=== PATIENT | male | born 1965 | race Caucasian/White ===

== ENCOUNTER 2021-10-09 10:46 | Emergency (ER) | payer MEDICAID ==
[~2021-10-09] VITALS: Ht 177.8 cm; Wt 100.0 kg
[2021-10-09 12:40] VITALS: BP 150/96
== END 2021-10-09 13:20 | disposition home or self-care (01) ==
LOC: ER 10:46
DX: S40.212A Abrasion of left shoulder, initial encounter (principal); M54.2 Cervicalgia; I10 Essential (primary) hypertension; V43.52XA Car driver injured in collision with other type car in traffic accident, initial encounter; Y93.89 Activity, other specified; Y92.488 Other paved roadways as the place of occurrence of the external cause
CPT/HCPCS: 99283

== ENCOUNTER 2022-10-12 13:05 | Emergency (ER) | payer MEDICAID ==
[~2022-10-12] VITALS: Ht 172.7 cm; Wt 120.0 kg
[2022-10-12 13:10] VITALS: TEMP 98.8; O2SAT 97
[2022-10-12 13:55] LABS: BASOPHILS % 0.5 % (0.0-2.0); EOSINOPHILS % 1.2 % (0.0-5.0); HEMATOCRIT. 40.8 % (42.0-52.0); HEMOGLOBIN. 13.7 g/dL (14.0-18.0); LYMPHOCYTES % 28.1 % (20.0-50.0); MEAN CORPUSCULAR HEMOGLOBIN 28.3 pg (28.0-32.0); MEAN CORPUSCULAR VOLUME 84.5 fL (80.0-94.0); MEAN PLATELET VOLUME 9.8 fl (7.4-10.4); MONOCYTES % 9.9 % (2.0-8.0); NEUTROPHILS % 60.3 % (40.0-76.0); PLATELET 225 x1000/uL (130-400); RED BLOOD CELL COUNT 4.83 mill/uL (4.7-6.1)
[2022-10-12 14:09] LABS: CHLORIDE 108 mEq/L (98-107)
[2022-10-12 14:23] LABS: ETHANOL BLOOD < 10 mg/dL (-10)
[2022-10-12 14:53] VITALS: BP 138/92; PULSE 99; RESP 18
== END 2022-10-12 14:54 | disposition home or self-care (01) ==
LOC: ER 13:05
DX: R00.2 Palpitations (principal); I10 Essential (primary) hypertension; R94.31 Abnormal electrocardiogram [ECG] [EKG]; Z98.890 Other specified postprocedural states
CPT/HCPCS: 36415; 71045; 80053; 80320; 83735; 84100; 84443; 84484; 85025; 93005; 99285; G0480

== ENCOUNTER 2023-04-21 13:52 | Emergency (ER) | payer MEDICAID ==
[~2023-04-21] VITALS: Ht 172.7 cm; Wt 103.0 kg
[2023-04-21 14:43] VITALS: O2SAT 99
[2023-04-21 15:28] LABS: BASOPHILS % 0.4 % (0.0-2.0); EOSINOPHILS % 0.4 % (0.0-5.0); HEMATOCRIT. 40.1 % (42.0-52.0); HEMOGLOBIN. 14.1 g/dL (14.0-18.0); LYMPHOCYTES % 18.8 % (20.0-50.0); MEAN CORPUSCULAR HEMOGLOBIN 29.4 pg (28.0-32.0); MEAN CORPUSCULAR HGB CONC 35.1 g/dL (31.0-37.0); MEAN CORPUSCULAR VOLUME 83.8 fL (80.0-94.0); MEAN PLATELET VOLUME 9.1 fl (7.4-10.4); MONOCYTES % 7.4 % (2.0-8.0); PLATELET 236 x1000/uL (130-400); RED BLOOD CELL COUNT 4.79 mill/uL (4.7-6.1); RED CELL DISTRIBUTION WIDTH 14.5 % (11.6-14.6); WHITE BLOOD COUNT 10.7 x1000/uL (4.5-11.0)
[2023-04-21 15:56] LABS: ALANINE AMINOTRANSFERASE 37 IU/L (10-49); ALBUMIN 4.2 g/dL (3.2-4.8); ASPARTATE AMINOTRANSFERASE 27 IU/L (<34); BILIRUBIN TOTAL 0.8 mg/dL (0.1-1.0); CALCIUM 9.4 mg/dL (8.7-10.4); CARBON DIOXIDE 29 mEq/L (21-32); CHLORIDE 105 mEq/L (98-107); CREATININE 0.6 mg/dL (0.6-1.3); GLUCOSE 104 mg/dL (70-105); PROTEIN TOTAL 7.9 g/dL (6.0-8.3); SODIUM 140 mEq/L (136-145); UREA NITROGEN BLOOD 10 mg/dL (9-23)
[2023-04-21 16:25] LABS: ETHANOL BLOOD < 10 mg/dL (<10)
[2023-04-21 20:07] LABS: CLARITY URINE CLOUDY (CLEAR); COLOR URINE YELLOW (YELLOW); GLUCOSE URINE NEGATIVE (NEGATIVE); KETONES URINE NEGATIVE (NEGATIVE); LEUKOCYTE ESTERASE URINE NEGATIVE (NEGATIVE); NITRITE URINE NEGATIVE (NEGATIVE); OCCULT BLOOD URINE NEGATIVE (NEGATIVE); PROTEIN URINE NEGATIVE (NEGATIVE); SPECIFIC GRAVITY URINE 1.017 (1.005-1.030); UROBILINOGEN URINE 0.2 E.U./dL (0.2-1.0)
[2023-04-21 20:19] LABS: RBC URINE 0-2 /hpf (0-2); SQUAMOUS EPITHELIAL CELL URINE NONE SEEN /lpf (RARE/1+); WBC URINE 0-2 /hpf (0-2)
[2023-04-21 20:20] LABS: BACTERIA URINE 2+; YEAST URINE NONE SEEN
[2023-04-21 20:21] LABS: *AMPHETAMINES SCREEN URINE NEGATIVE (NEGATIVE); *BARBITURATES SCREEN URINE NEGATIVE (NEGATIVE); *BENZODIAZEPINES SCREEN URINE NEGATIVE (NEGATIVE); *COCAINE SCREEN URINE NEGATIVE (NEGATIVE); CANNABINOID URINE SCREEN NEGATIVE (NEGATIVE); ECSTASY MDMA SCREEN URINE NEGATIVE (NEGATIVE); METHADONE URINE SCREEN Neg (NEGATIVE); OPIATES URINE SCREEN NEGATIVE (NEGATIVE); PHENCYCLIDINE URINE SCREEN NEGATIVE (NEGATIVE)
[2023-04-21 21:18] VITALS: BP 151/86; PULSE 80; RESP 16; TEMP 98.8
== END 2023-04-21 21:46 | disposition home or self-care (01) ==
LOC: ER 14:33
DX: G45.9 Transient cerebral ischemic attack, unspecified (principal); I10 Essential (primary) hypertension; Z79.899 Other long term (current) drug therapy
CPT/HCPCS: 36415; 71045; 80053; 80305; 80320; 81003; 85025; 93005; 99285; G0480

== ENCOUNTER 2023-12-02 07:42 | Emergency (ER) | payer MEDICAID ==
[~2023-12-02] VITALS: Ht 172.7 cm; Wt 127.0 kg
[2023-12-02 07:51] VITALS: O2SAT 99
[2023-12-02 10:00] VITALS: BP 146/91; PULSE 72; RESP 18; TEMP 36.94740; O2SAT 96
== END 2023-12-02 11:00 | disposition home or self-care (01) ==
LOC: ER 07:42
DX: S82.61XA Displaced fracture of lateral malleolus of right fibula, initial encounter for closed fracture (principal); I10 Essential (primary) hypertension; G45.9 Transient cerebral ischemic attack, unspecified; X58.XXXA Exposure to other specified factors, initial encounter; Y93.89 Activity, other specified; Y92.89 Other specified places as the place of occurrence of the external cause; Y99.8 Other external cause status
CPT/HCPCS: 29515; 73610; 73630; 99284